=== PATIENT | female | born 1975 | race Caucasian/White ===

== ENCOUNTER 2023-04-01 10:13 | Day surgery (SDC) | payer MEDICAID ==
[2023-03-29 14:01] LABS: HCG,QUAL RESULT NEGATIVE (NEGATIVE)
[~2023-04-01] VITALS: Ht 154.9 cm; Wt 78.9 kg
[2023-04-01] MEDS ORDERED: ONDANSETRON HCL 4 MG/2 ML VIAL ONE (11:55)
[2023-04-01] MEDS ORDERED: NS IRRIG SOLN 1000 ML IR ONE (11:55)
[2023-04-01] MEDS ORDERED: PROPOFOL 200MG/ 20ML VIAL (DIPRIVAN) IV ONE (11:55)
[2023-04-01] MEDS ORDERED: SEVOFLURANE 15 MIN GAS INH ONE (11:55)
[2023-04-01] MEDS ORDERED: fentaNYL CITRATE/PF 100 MCG/2 ML AMP ONE (11:55)
[2023-04-01] MEDS ORDERED: LR 1,000 ML IV.SOLN IV ONE (11:55)
[2023-04-01] MEDS ORDERED: KETOROLAC TROMETHAMINE 30 MG VIAL IVP PRN (12:30)
[2023-04-01] MEDS ORDERED: ONDANSETRON HCL 4 MG/2 ML VIAL IVP PRN (12:30)
[2023-04-01] MEDS ORDERED: METOCLOPRAMIDE HCL 10 MG/2 ML VIAL IVP PRN (12:30)
[2023-04-01] MEDS ORDERED: HYDROmorphone 1 MG/ML INJ. CARTRIDGE IVP PRN (12:30)
[2023-04-01 14:12] VITALS: BP_SYST 125
== END 2023-04-01 13:58 | disposition home or self-care (01) ==
LOC: SDS 10:13 → SMU 10:14 → SDS 13:58
PROVIDERS: ATTEND Obstetrics & Gynecology
DX: N92.0 Excessive and frequent menstruation with regular cycle (principal)
CPT/HCPCS: 84703; 87081; 58563; J2405; J2704; J3010; J7120